=== PATIENT | female | born 1975 | race Two or more races ===

== ENCOUNTER 2023-04-13 20:59 | Emergency (ER) | payer OTHER ==
[~2023-04-13] VITALS: Ht 152.4 cm; Wt 77.6 kg
[2023-04-13] MEDS ORDERED: PROPRANOLOL HCL40 MG (21:37)
[2023-04-13 23:11] LABS: URINE APPEARANCE Clear; URINE BILIRRUBIN Negative (NEGATIVE); URINE BLOOD Negative; URINE COLOR Yellow; URINE GLUCOSE Negative (NEGATIVE); URINE LEUKOCYTE Negative; URINE NITRATE Negative; URINE PROTEIN Negative (NEGATIVE); URINE UROBILINOGEN 0.2 E.U./dl
[2023-04-13 23:14] LABS: URINE BACTERIA 879.4 uL (0.0-1933); URINE EPITHELIAL CELLS 29.6 uL (0.0-38.8); URINE WBC 12.9 uL (0.0-23.2)
[2023-04-13 23:24] LABS: HEMOGLOBIN 12.4 g/dL (12.0-15.00); MEAN CELL VOLUME 91.8 fL (80.00-100.00); MEAN CORPUSCULAR HEMOGLOBIN 30.8 pg (27.00-32.0); MEAN CORPUSCULAR HGB CONC 33.6 g/dl (32.0-36.0); PLATELET COUNT 261 K/uL (150-450); RED BLOOD COUNT 4.03 M/uL (4.00-6.00); RED CELL DISTRIBUTION WIDTH 13.8 % (11.5-14.5)
[2023-04-13 23:36] LABS: ALBUMIN 3.6 gm/dL (3.4-5.0); BILIRUBIN TOTAL 0.24 mg/dL (0.3-1.2); CALCIUM 8.4 mg/dL (8.5-10.1); CREATININE SERUM 1.07 mg/dL (0.55-1.02); GFR 54.97; POTASSIUM 4.02 mEq/L (3.5-5.1); TOTAL PROTEIN 7.6 gm/dL (6.4-8.2)
== END 2023-04-14 00:28 | disposition home or self-care (01) ==
LOC: ER 20:59
PROVIDERS: General Practice
DX: R55 Syncope and collapse (principal); Z88.5 Allergy status to narcotic agent; Z91.018 Allergy to other foods